=== PATIENT | female | born 1970 | race Caucasian/White ===

== ENCOUNTER → 2017-09-18 | Outpatient (CLI) | payer OTHER ==
[2017-09-18] MEDS: IOHEXOL 300 MG/ML 100ML VIAL. IV (08:42)
== END | disposition home or self-care (01) ==
LOC: US 06:36
DX: K76.9 Liver disease, unspecified (principal); R13.12 Dysphagia, oropharyngeal phase; E21.5 Disorder of parathyroid gland, unspecified
CPT/HCPCS: 70491; 76700; Q9967

== ENCOUNTER → 2020-07-21 | Outpatient (CLI) | payer OTHER ==
[2016-08-05 09:40] VITALS: BP 125/58
[~2020-07-21] MED LIST: LACT1CAP8 PO; OXYC1TAB15 PO
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
== END ==
LOC: KCIC MRI 09:08
PROVIDERS: ATTEND Orthopaedic Surgery
DX: S83.242A Other tear of medial meniscus, current injury, left knee, initial encounter (principal); M25.462 Effusion, left knee; R60.9 Edema, unspecified; X58.XXXA Exposure to other specified factors, initial encounter; Y93.89 Activity, other specified; Y92.89 Other specified places as the place of occurrence of the external cause; Y99.8 Other external cause status
CPT/HCPCS: 73721